=== PATIENT | female | born 1975 | race Caucasian/White ===

== ENCOUNTER 2020-07-17 07:32 | Emergency (ER) | payer OTHER ==
[~2020-07-17] VITALS: Ht 172.7 cm; Wt 140.6 kg
[~2020-07-17 07:32] MED LIST: ACCUNEB SO1.25 MG/1 INH; ACETAMINOPHEN-1 EAC1 PO; ALBUTEROL INHAL17 GM IH; AZITHROMYCIN 2250 MG PO; CEPHALEXIN 500500 M3 PO; CIPRO500 MG PO; CIPROFLOXACIN500 M1 PO; DOXYCYCLINE 10100 MG PO; FLAGYL500 M1 PO; FLAGYL500 MG PO; HYDROCODON-ACE1 EAC7 PO; IBUPROFEN 800800 M1 PO; IBUPROFEN 800800 MG PO; KEFLEX250 MG PO; KEFLEX500 MG PO; LIDOCAINE VISC100 M1 SWISH&SPIT; NAPROSYN375 MG PO; NOHOMEMEDICATIONS; NORCO 5-325 TA1 EACH PO; ULTRAM 50MG TAB50 MG PO; VICODIN 5-5001 EACH PO; ZOFRAN ODT4 MG SUBLING; ZPAK PO
[2020-07-17] MEDS ORDERED: FLEXERIL PO (08:14)
[2020-07-17] MEDS ORDERED: IBUPROFEN 800800 M1 PO (08:14)
[2020-07-17 08:36] VITALS: BP 149/77
== END 2020-07-17 08:38 | disposition home or self-care (01) ==
LOC: M.ERS 07:32
DX: S86.812A Strain of other muscle(s) and tendon(s) at lower leg level, left leg, initial encounter (principal); M13.862 Other specified arthritis, left knee; J45.909 Unspecified asthma, uncomplicated; Z98.890 Other specified postprocedural states; Z98.51 Tubal ligation status; Z88.5 Allergy status to narcotic agent; Z91.040 Latex allergy status; Z88.0 Allergy status to penicillin; X58.XXXA Exposure to other specified factors, initial encounter; Y93.89 Activity, other specified; Y92.89 Other specified places as the place of occurrence of the external cause; Y99.8 Other external cause status